=== PATIENT | female | born 1950 | race Caucasian/White ===

== ENCOUNTER → 2017-07-26 | Outpatient (CLI) | payer MEDICARE, OTHER ==
[~2017-07-26] MED LIST: ARIMIDEX1 MG PO; BUPROPION XL300 MG PO; CIMETIDINE 400400 MG PO; CLONAZEPAM 1 MG1 M1 PO; CO-ENZYME Q-1010 MG PO; COZAAR 50 MG TA50 M2 PO; DOXYCYCLINE 10100 MG PO; LEVAQUIN 500 M50012 PO; MELATONIN5 M1 PO; MOBIC15 MG PO; NAPROSYN500 MG PO; NEURONTIN 300300 M1 PO; PREDNISONE 10 M10 M1 PO; PREVACID30 M2 PO; PROTONIX40 M1 PO; REMERON15 MG PO; SINGULAIR 10 MG10 M1 PO; TRAZODONE HCL100 MG PO; TUMS PO; TUSSIONEX PENN473 ML PO; ZOCOR20 MG PO; ZOLOFT 50 MG TA50 M1 PO; vitamin d3
== END ==
LOC: M.NUC 07-19 07:30
DX: K44.9 Diaphragmatic hernia without obstruction or gangrene (principal); R11.2 Nausea with vomiting, unspecified

== ENCOUNTER → 2017-09-26 | Outpatient (CLI) | payer MEDICARE, OTHER ==
--- NOTE | 2017-09-27 14:20 | PAINCON ---
[facility] [address] [place] [address] PAIN MANAGEMENT CONSULTATION Name: DANNIECLEM Barba Room: [facility] [place]#: [id number] Admission: 09/26/17 Attend Phys: Jacky Zazueta MD Discharge: Date of : 52 Report #: [id number] THIS REPORT FOR: //name// CC: Tabatha Zazueta DATE OF SERVICE: 09/26/2017 FOLLOWUP COMPLAINT: The pain improved quite a bit after the last injection and now has returned, it was 90% better. Now, I have noticed that over the last few months, it has returned. I would like to have another injection. FOLLOWUP HISTORY: The patient is a 66-year-old female who has been seen in the pain clinic because of cervical radiculopathy. As you recall, she has had surgery on her neck with fusion of C3 through C5. She has undergone epidural steroid injection in the past and gleaned benefits from these. At this juncture, she is now having more pain and discomfort. She rates it as a 3/10. She also has continued with other techniques. She notes that deep massage can be helpful. Notes that it is uncomfortable when she has it done, but feels it is worthwhile. She finds that Mobic continues to be helpful, Neurontin 300 mg t.i.d. is helpful as well. Does have some pain that radiates down into her shoulders. Also, continues to note a sensation grinding when her head is rotated. Denies any new trauma. She would like to proceed with another epidural steroid injection today. Still feels activities of daily living such as arm movements, computer work are things that exacerbate her discomfort. Medications and rest are helpful. ALLERGIES: ASPIRIN, CODEINE, PENICILLIN. CURRENT MEDICATIONS: Arimidex 1 mg, calcium, cimetidine 400 mg b.i.d., clonazepam 1 mg, Neurontin 300 mg t.i.d., Cozaar 50 mg, melatonin 5 mg at bedtime, Meloxicam 15 mg daily, Remeron 15 mg at bedtime, Singulair 10 mg, Protonix 40 mg, Zoloft 50 mg, Zocor 20 mg, Co-enzyme Q, trazodone 100 mg at bedtime, multivitamins. PAIN CLINIC ASSESSMENT: 1. History of osteoarthritic changes in the neck, status post surgery. 2. Height 5 feet 5 inches, weight 174 pounds, BMI is 29. 3. Vital signs: Blood pressure 110/68, heart rate 79, respiratory rate 16, room air saturation 95%, temperature 97.8. 4. Pain intensity 06/24. 5. Fall risk. The patient has not fallen in the last 3 months. 6. Blood thinner. The patient is not on a blood thinning medication. 7. History of hypertension. The patient is not [place] [address] PAIN MANAGEMENT CONSULTATION Name: CLEM PANDEY [id number] Admission: 09/26/17 Attend Phys: Jacky Zazueta MD Discharge: Date of : 51 Report #: [id number] 8. Opioid medications 6 weeks. The patient is not on an opioid medication on a regular basis. 9. Risk assessment tool, low for opioid use. 10. Functional assessment tool. 11. Recreational drug use. The patient denies use of recreational drugs. 12. Tobacco: The patient denies use of tobacco. 13. Alcohol: The patient denies use of frequent alcohol. PHYSICAL EXAMINATION: GENERAL: The patient is a well-developed white female. She appears her stated age. She is alert and oriented x 3. Speech is fluent. HEENT: Normocephalic, atraumatic. Extraocular eye muscles intact. Well-healed scar in the anterior neck area, no bruits, or adenopathy. HEART: Regular rate. S1, S2. LUNGS: Clear to auscultation without rales, rhonchi. ABDOMEN: Nontender. EXTREMITIES: Upper extremity muscle strength is judged to be 5/5. Complains of some neck and shoulder discomfort. Has the sensation of grinding in popping in her neck with movement. Lower extremity muscle strength is judged to be 5/5 for the major muscle groups in the lower extremity. MUSCULOSKELETAL: Without significant scoliosis, kyphosis or lordosis. Muscle strength to the lower extremity judged to be 5/5. IMPRESSION: 1. Cervical radiculopathy, C3/C5 fusion. 2. Anxiety. 3. Malik's esophagitis. 4. Breast cancer history 2010, stage I and stage III on the right. 5. Hyperlipidemia. 6. Hypertension. 7. Kidney disease. 8. Heart disease. 9. Lung disease. 10. Emotional problems. 11. Joint disease/arthritis with ulcers. The patient is not having problems with these ulcers at this juncture. RECOMMENDATIONS: We discussed treatment options with the patient. Risks and benefits of an epidural steroid in the cervical area were again discussed. Possible complications were reviewed. The patient has gleaned greater than 90% improvement after the last injection. At this juncture, she would like to proceed with another injection. Risks and benefits of the procedure, which could include, but are not limited to infection, increased muscle soreness, headache, worsening of pain, muscle soreness, paralysis, bleeding were discussed. The [place] [address] PAIN MANAGEMENT CONSULTATION Name: CLEM PANDEY Room: [facility].#: [id number] Admission: 09/26/17 Attend Phys: Jacky Zazueta MD Discharge: Date of : 51 Report #: [id number] PROCEDURE NOTE: The patient was placed in the prone position. Fluoroscopy was used to identify the C7-T1 interspace. This area had been sterilely prepped with Betadine and infiltrated with 0.25% bupivacaine. Total of 80 mg Depo-Medrol, 40 mg triamcinolone and 2 mL of 0.25% bupivacaine was injected. The patient tolerated the procedure well. There were no complications. She remained in the pain clinic for an appropriate amount of time. Fluoroscopy using anterior, posterior imaging was used to identify the appropriate site for injection. This was done in midline approach. <ELECTRONICALLY SIGNED> By: Jacky Zazueta MD 09/27/17 1420 1500 1950N. Luis Carlos Zazueta MD /[facility]
== END | disposition home or self-care (01) ==
LOC: M.PC 00:40
DX: M54.12 Radiculopathy, cervical region (principal); G89.29 Other chronic pain; I10 Essential (primary) hypertension; E78.5 Hyperlipidemia, unspecified; M19.90 Unspecified osteoarthritis, unspecified site; F41.9 Anxiety disorder, unspecified; N28.9 Disorder of kidney and ureter, unspecified; J98.4 Other disorders of lung; I52 Other heart disorders in diseases classified elsewhere; F98.9 Unspecified behavioral and emotional disorders with onset usually occurring in childhood and adolescence; Z85.3 Personal history of malignant neoplasm of breast; Z87.19 Personal history of other diseases of the digestive system; Z88.0 Allergy status to penicillin; Z88.8 Allergy status to other drugs, medicaments and biological substances; Z79.899 Other long term (current) drug therapy; Z98.890 Other specified postprocedural states

== ENCOUNTER 2017-12-11 17:03 | Emergency (ER) | payer MEDICARE, OTHER ==
[~2017-12-11] VITALS: Ht 165.1 cm; Wt 77.1 kg
[~2017-12-11 17:03] MED LIST changes: -DOXYCYCLINE 10100 MG PO
[2017-12-11] MEDS ORDERED: DOXYCYCLINE 10100 MG PO (17:25)
[2017-12-11 17:54] VITALS: BP 109/77
== END 2017-12-11 17:55 | disposition home or self-care (01) ==
LOC: M.ERS 17:03
DX: S50.812A Abrasion of left forearm, initial encounter (principal); K04.7 Periapical abscess without sinus; I10 Essential (primary) hypertension; E78.00 Pure hypercholesterolemia, unspecified; Z85.3 Personal history of malignant neoplasm of breast; Z88.0 Allergy status to penicillin; Z88.5 Allergy status to narcotic agent; Z88.6 Allergy status to analgesic agent; W55.01XA Bitten by cat, initial encounter; Y93.89 Activity, other specified; Y92.89 Other specified places as the place of occurrence of the external cause; Y99.8 Other external cause status

== ENCOUNTER → 2018-01-04 | Outpatient (CLI) | payer MEDICARE, OTHER ==
[~2018-01-04] MED LIST changes: +DOXYCYCLINE 10100 MG PO
== END ==
LOC: M.ULTRA 15:17
DX: I65.21 Occlusion and stenosis of right carotid artery (principal)

== ENCOUNTER → 2018-01-22 | Outpatient (CLI) | payer MEDICARE, OTHER | LOC: M.MRI 17:05 | DX: M47.22 Other spondylosis with radiculopathy, cervical region (principal); M48.02 Spinal stenosis, cervical region; R20.0 Anesthesia of skin; I10 Essential (primary) hypertension; J44.9 Chronic obstructive pulmonary disease, unspecified; E78.5 Hyperlipidemia, unspecified; K21.9 Gastro-esophageal reflux disease without esophagitis; Z96.9 Presence of functional implant, unspecified ==

== ENCOUNTER → 2018-02-19 | Outpatient (CLI) | payer MEDICARE, OTHER | LOC: M.RAD 15:28 | DX: M47.892 Other spondylosis, cervical region (principal) ==

== ENCOUNTER → 2018-05-01 | Outpatient (CLI) | payer MEDICARE, OTHER | LOC: M.LAB 13:03 → M.CT 15:00 | DX: N20.0 Calculus of kidney (principal); R10.13 Epigastric pain; Z85.3 Personal history of malignant neoplasm of breast ==

== ENCOUNTER → 2019-01-24 | Outpatient (CLI) | payer MEDICARE, OTHER ==
[~2019-01-24] MED LIST changes: +ADDERALL 20 MG20 MG PO; +BUSPIRONE HCL10 MG PO; +CELEBREX 200 M200 M1 PO; +HYDROXYZIN10 MG/5 M2 PO; +MAGNESIUM250 M1 PO; +MELATONIN5 MG PO; +PAXIL 20 MG TAB20 MG PO; +SOMA350 MG PO; +SYMBICORT160 MCG/4. INH; +VITAMIN K100 MCG PO; +ZINC SULFATE220 MG PO
--- NOTE | 2019-02-06 09:09 | PAINCON ---
[address] [address] PAIN MANAGEMENT CONSULTATION Name: NOHEMYCLEM J Room: [facility] [place]#: [id number] Admission: 01/24/19 Attend Phys: Jacky Zazueta MD Discharge: Date of : 51 Report #: [id number] THIS REPORT FOR: //name// CC: Tabatha Zazueta DATE OF SERVICE: 01/24/2019 CHIEF COMPLAINT: Pain in the neck, arm, shoulder with radiation down into the right hand. HISTORY: The patient is a 68-year-old female who has been seen in the pain clinic because of cervical radiculopathy. She has undergone epidural steroid injections in the past and found them beneficial. Over the last month, she has noted a worsening of her pain and increased discomfort. She received 100% improvement after the last injection. She has returned today with a hope of undergoing another cervical epidural steroid injection. She has pain that is radiating down into her right arm, shoulder, neck and down into her hand. As you may recall, she has had pain and discomfort over the last year and a half. She also finds that the pain has risen to the level of 4/10. She had no complication from the last injection. She would like to proceed with another injection. Notes that her pain is worse with movement of her arm. Working on a computer is problematic. She notes that use of her medication as well as rest have been beneficial. ALLERGIES: ASPIRIN, CODEINE, PENICILLIN. CURRENT MEDICATIONS: Arimidex 1 mg, calcium, cimetidine 400 mg b.i.d., clonazepam 1 mg and Neurontin 300 mg t.i.d., Cozaar 50 mg, melatonin 5 mg at bedtime, meloxicam 15 mg, Remeron at bedtime, Singulair 10 mg, Protonix 40 mg, Zoloft 50 mg, Zocor 20 mg, Coenzyme Q, trazodone 100 mg at bedtime, multivitamins. PAIN CLINIC ASSESSMENT/PQRS: 1. History of osteoarthritis. The patient has some changes in the neck, status post surgery. 2. Height 5 feet 5 inches, weight 173 pounds, BMI is 28. 3. Vital signs: Blood pressure 128/70, heart rate 74, respiratory rate 16, room air saturation 97%, and temperature 97.6. 4. Pain score 4/10. 5. Fall history: The patient has not fallen in the last 3 months. 6. Blood thinner. The patient is not on a blood thinning medication. 7. Hypertension. The patient is not being treated for hypertension. 8. Opioids greater than 6 weeks. The patient is not on an opioid regimen on a regular basis. 9. Risk assessment tool, [place] [address] PAIN MANAGEMENT CONSULTATION Name: CLEM SLATER [facility] [id number] Admission: 01/24/19 Attend Phys: Jacky Zazueta MD Discharge: Date of : 51 Report #: [id number] 10. Functional assessment tool. 11. Recreational drug use. The patient denies. 12. Tobacco: The patient denies use of tobacco. 13. Alcohol. The patient denies use of alcoholic beverages. PHYSICAL EXAMINATION: GENERAL: The patient is a well-developed, well-nourished white female. Appears her stated age. She is alert and oriented x 3. Her affect is appropriate. Speech is fluent. HEENT: Normocephalic, atraumatic. Extraocular eye muscles intact. Sclerae is nonicteric. Mucous membranes are moist. NECK: Without adenopathy or JVD. MUSCULOSKELETAL: The patient has some pain and discomfort in the right shoulder. He has some pain in the area of the right neck with pain down into the area of the rhomboids as well as pain over the right shoulder and pain radiating down into the right arm and forearm with numbness, tingling, and weakness. Lower extremity, muscle strength judged to be 5/5 for the major muscle groups in the lower extremity. The patient without significant scoliosis, kyphosis or lordosis. IMPRESSION: 1. Cervical radiculopathy C3 through C7 fusion. 2. Anxiety. 3. Malik's esophagitis. 4. Breast cancer history 2010, stage 1 and stage 3 on the right. 5. Hyperlipidemia. 6. Hypertension. 7. Kidney disease. 8. Heart disease. 9. Lung disease. 10. Emotional problems. 11. Joint disease/arthritis with ulcers. The patient is not having problems with ulcers at this juncture. RECOMMENDATIONS: We discussed treatment options with the patient. Risks and benefits of a cervical epidural steroid injection were discussed. Possible complications of the procedure, which could include but are not limited to infection, worsening pain, no improvement in pain, increased muscle soreness and the patient elects to proceed. PROCEDURE NOTE: The patient was taken to the procedure area. She was then assisted in getting on the examination table. Her back was sterilely prepped in the cervical area with Betadine and allowed to dry. Fluoroscopy using anterior, posterior as well as lateral viewing were implemented. A total of 120 mg triamcinolone was injected after this area at C7-T1 were numbed and a 17[place] [address] PAIN MANAGEMENT CONSULTATION Name: CLEM SLATER Room: [facility]#: [id number] Admission: 01/24/19 Attend Phys: Jacky Zazueta MD Discharge: Date of : 51 Report #: [id number] Tuohy with loss of resistance technique was introduced at this area. There was no CSF, heme or paresthesia. The patient tolerated the procedure well. She remained in the Pain Clinic for an appropriate amount of time. A 20 seconds fluoroscopy time was used. The patient remained in the pain clinic for an appropriate amount of time. She will follow up in the future as needed. We would like to thank you for letting us participate in her care. We hope she continues to improve. <ELECTRONICALLY SIGNED> By: Jacky Zazueta MD 02/06/19 0909 [id number] 1700N. Luis Carlos Zazueta MD /nt
== END | disposition home or self-care (01) ==
LOC: M.PC 06:03
DX: M54.12 Radiculopathy, cervical region (principal); G89.29 Other chronic pain; E78.5 Hyperlipidemia, unspecified; I11.9 Hypertensive heart disease without heart failure; N28.9 Disorder of kidney and ureter, unspecified; F41.9 Anxiety disorder, unspecified; M19.90 Unspecified osteoarthritis, unspecified site; J98.9 Respiratory disorder, unspecified; Z85.3 Personal history of malignant neoplasm of breast; Z98.890 Other specified postprocedural states; Z79.899 Other long term (current) drug therapy

== ENCOUNTER → 2019-05-23 | Outpatient (CLI) | payer MEDICARE, OTHER | LOC: M.MRI 16:12 | DX: M47.22 Other spondylosis with radiculopathy, cervical region (principal); M50.123 Cervical disc disorder at C6-C7 level with radiculopathy; M48.02 Spinal stenosis, cervical region; Z88.6 Allergy status to analgesic agent; Z88.5 Allergy status to narcotic agent; Z88.0 Allergy status to penicillin ==

== ENCOUNTER → 2019-11-05 | Outpatient (CLI) | payer MEDICARE, OTHER ==
[~2019-11-05] MED LIST changes: +NEURONTIN 300M300 M2 PO; +ZINC PO
--- NOTE | 2019-11-19 14:07 | PAINCON ---
[address] [address] PAIN MANAGEMENT CONSULTATION Name: NOHEMYCLEM Jameson Room: [facility].#: [id number] Admission: 11/05/19 Attend Phys: Jacky Zazueta MD Discharge: Date of : 51 Report #: [id number] THIS REPORT FOR: //name// cc: Christina Shaw MD, Pamela MD ~ THIS REPORT FOR: //name// CC: Jacky Shaw DATE OF SERVICE: 11/05/2019 CHIEF COMPLAINT: Neck and right shoulder pain as well as pain in the left arm. HISTORY: The patient is a 69-year-old female who has been referred to the pain clinic because of pain and discomfort. She has had some problems with her neck in the past. She has had cervical fusion with placement of screws and hardware. She states that she fell down the hill. She hit her head. She went to the Emergency Room. She had an x-ray and an MRI. She continues to have pain in her right shoulder with pain radiating down into her arm with numbness and tingling in her right hand and wrist. An x-ray of her left shoulder was performed. Some calcific tendinosis was present. There was calcium hydroxyapatite deposition in the rotator cuff. Otherwise, the radiograph of her shoulder was normal. The patient had undergone cervical epidural steroid injection in 01/2019. She has returned today with a desire of undergoing another injection with hopes that it will help her pain. ALLERGIES: ASPIRIN, CODEINE, PENICILLIN. CURRENT MEDICATIONS: Soma 350 mg b.i.d., gabapentin 300 mg, Tylenol p.r.n., Celebrex 200 mg, Trent in the past, cimetidine 400 mg b.i.d., clonazepam 1 mg, Cozaar 50 mg, melatonin 5 mg at bedtime, Remeron at bedtime, Singulair 10 mg, Protonix 40 mg, Zoloft 50 mg, Zocor 20 mg, Coenzyme Q, trazodone 100 mg at bedtime, and multivitamins. PAIN CLINIC ASSESSMENT AND PQRS: 1. History of osteoarthritis. The patient has some arthritic changes in her neck, status post surgery. She has had knee surgery. 2. Height 5 feet 6 inches, weight 187 pounds, BMI is 28. 3. Vital Signs: Blood pressure 147/93, heart rate 86, respiratory rate 16, room air saturation 97%, temperature 96.7. 4. Pain intensity score, 4/10. 5. Fall history. The patient fell down the hill and hit her head with worsening of her pain. 6. Blood thinner. The patient is not on a blood thinning medication. 7. Hypertension. The patient is not being [place] [address] PAIN MANAGEMENT CONSULTATION Name: CLEM SLATER Room: [facility]#: [id number] Admission: 11/05/19 Attend Phys: Jacky Zazueta MD Discharge: Date of : 51 Report #: [id number] 8. Opioids greater than 6 weeks. The patient receives medication from her primary physician. 9. Risk assessment tool, low for opioid. 10. Functional assessment tool. 11. Recreational drug use. The patient denies. 12. Tobacco. Te patient denies. 13. Alcohol. The patient denies use of alcoholic beverages. PHYSICAL EXAMINATION: GENERAL: The patient is a well-developed, well-nourished, white female. Appears her stated age. She is alert and oriented x 3. She is somewhat distraught today. She appears to be quite nervous and apprehensive. Speech fluent. HEENT: Normocephalic, atraumatic. Extraocular eye muscles intact. Sclerae nonicteric. Mucous membranes are moist. NECK: Without adenopathy or JVD. The patient does complain of some pain in her neck. Complains of pain radiating down into her right shoulder as well as the left side with pain down into her arm and causing some numbness and tingling in her right hand and wrist. MUSCULOSKELETAL: The patient has some decreased range of motion in her neck, left and right lateral bending, left and right lateral rotation, lumbar flexion and extension. Lower extremity muscle strength judged to be 5/5 for the major muscle groups in the lower extremity. The patient without significant scoliosis, kyphosis or lordosis. IMPRESSION: 1. Cervical radiculopathy C3 through C7 fusion. 2. Anxiety. 3. Malik's esophagitis. 4. Breast cancer history, 2010, stage 1 and stage 3 on the right. 5. Hyperlipidemia. 6. Hypertension. 7. Kidney disease. 8. Heart disease. 9. Lung disease. 10. Emotional problems. 11. Joint disease/arthritis with history of ulcers. The patient is not having problems with ulcers at this juncture. RECOMMENDATIONS: We discussed treatment options with the patient. Risks and benefits of an epidural steroid injection were discussed. They include but are not limited to infection, worsening pain, no improvement in pain, nerve damage and the patient elects to proceed. PROCEDURE NOTE: The patient was taken to the procedure area. She was then assisted in getting on the examination table. A pillow was placed under her [facility] [address] [place] [address] PAIN MANAGEMENT CONSULTATION Name: CLEM SLATER Room: [facility]#: [id number] Admission: 11/05/19 Attend Phys: Jacky Zazueta MD Discharge: Date of : 51 Report #: [id number] shoulders to improve positioning. Fluoroscopy using anterior, posterior as well as lateral viewing were implemented. A 25-gauge needle was then used to anesthetize the C7-T1 interspace. A 17-gauge Tuohy with loss of resistance technique was used to gain access to the epidural space. There was no CSF, heme or paresthesia. Fluoroscopy confirmed appropriate placement. A total of 120 mg triamcinolone was injected. The patient tolerated the procedure well. She was taken to the recovery room. She remained in the pain clinic for an appropriate amount of time. She will follow up in the future as needed. We would like to thank you for letting us participate in her care. We hope she continues to improve. <ELECTRONICALLY SIGNED> By: Jacky Zazueta MD 11/19/19 1407 2101 0005Jacky Zazueta MD /[facility]
== END | disposition home or self-care (01) ==
LOC: M.PC 04:18
PROVIDERS: ATTEND Anesthesiology Pain Medicine
DX: M54.12 Radiculopathy, cervical region (principal); G89.29 Other chronic pain; I10 Essential (primary) hypertension; E78.5 Hyperlipidemia, unspecified; F41.9 Anxiety disorder, unspecified; M19.90 Unspecified osteoarthritis, unspecified site; Z98.890 Other specified postprocedural states; Z79.899 Other long term (current) drug therapy; Z85.3 Personal history of malignant neoplasm of breast; Z87.19 Personal history of other diseases of the digestive system; Z88.0 Allergy status to penicillin; Z88.8 Allergy status to other drugs, medicaments and biological substances

== ENCOUNTER → 2020-04-02 | Outpatient (CLI) | payer MEDICARE, OTHER | LOC: M.PC 11:37 | PROVIDERS: ATTEND Anesthesiology Pain Medicine | DX: M54.2 Cervicalgia (principal); M25.511 Pain in right shoulder; M25.512 Pain in left shoulder ==

== ENCOUNTER → 2020-04-07 | Outpatient (CLI) | payer MEDICARE, OTHER | END | disposition home or self-care (01) | LOC: M.PC 12:17 | PROVIDERS: ATTEND Anesthesiology Pain Medicine | DX: M54.12 Radiculopathy, cervical region (principal); G89.29 Other chronic pain; I10 Essential (primary) hypertension; F32.9 Major depressive disorder, single episode, unspecified; F41.9 Anxiety disorder, unspecified; E78.5 Hyperlipidemia, unspecified; E78.00 Pure hypercholesterolemia, unspecified; M19.90 Unspecified osteoarthritis, unspecified site; Z98.890 Other specified postprocedural states; Z79.899 Other long term (current) drug therapy; Z85.3 Personal history of malignant neoplasm of breast; Z87.19 Personal history of other diseases of the digestive system; Z88.0 Allergy status to penicillin; Z88.8 Allergy status to other drugs, medicaments and biological substances ==

== ENCOUNTER → 2020-07-02 | Outpatient (CLI) | payer MEDICARE, OTHER ==
[~2020-07-02] MED LIST changes: +ANASTROZOLE1 MG PO; +CO Q-10100 MG PO; +COLACE100 MG PO; +KLONOPIN1 MG PO; +LOSARTAN POTASS25 MG PO; +OXYCODONE HCL 55 MG PO; +PERCOCET; +PREVACID30 MG PO; +TRAMADOL 50 MG50 MG PO; +TURMERIC500 MG PO; +VENTOLIN HFA 1818 GM INH; +VICODIN 5-3001 EACH; +VITAMIN D3400 UNIT PO; +WELLBUTRIN XL300 MG PO; +XARELTO10 MG PO
== END | disposition home or self-care (01) ==
LOC: M.PC 12:21
PROVIDERS: ATTEND Anesthesiology Pain Medicine
DX: M54.12 Radiculopathy, cervical region (principal); G89.29 Other chronic pain; I10 Essential (primary) hypertension; J44.9 Chronic obstructive pulmonary disease, unspecified; E78.5 Hyperlipidemia, unspecified; F41.9 Anxiety disorder, unspecified; M19.90 Unspecified osteoarthritis, unspecified site; Z98.890 Other specified postprocedural states; Z79.899 Other long term (current) drug therapy; Z85.3 Personal history of malignant neoplasm of breast; Z87.19 Personal history of other diseases of the digestive system; Z87.891 Personal history of nicotine dependence; Z88.0 Allergy status to penicillin; Z88.6 Allergy status to analgesic agent

== ENCOUNTER → 2021-02-02 | Outpatient (CLI) | payer MEDICARE | END | disposition home or self-care (01) | LOC: M.PC 12:00 | PROVIDERS: ATTEND Anesthesiology Pain Medicine | DX: M54.12 Radiculopathy, cervical region (principal); I10 Essential (primary) hypertension; E78.5 Hyperlipidemia, unspecified; F41.9 Anxiety disorder, unspecified; M19.90 Unspecified osteoarthritis, unspecified site; Z98.890 Other specified postprocedural states; Z79.899 Other long term (current) drug therapy; Z85.3 Personal history of malignant neoplasm of breast; Z87.19 Personal history of other diseases of the digestive system; Z87.891 Personal history of nicotine dependence; Z90.49 Acquired absence of other specified parts of digestive tract; Z88.0 Allergy status to penicillin; Z88.8 Allergy status to other drugs, medicaments and biological substances ==